=== PATIENT | female | born 2000 | race Caucasian/White ===

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

== ENCOUNTER 2021-12-15 11:41 | Observation (INO) ==
--- NOTE | 2021-12-15 12:32 | XRay Report ---
XR chest 2V PA/lateral CLINICAL HISTORY: sob, cough TECHNIQUE: 2 views of the chest were obtained. Comparison: None available at the time of this dictation. FINDINGS: No lines and tubes are seen. The cardiomediastinal silhouette is normal. The lungs are clear. No evid ence of pleural effusion or pneumothorax. IMPRESSION: No acute abnormalities and in particular no evidence of pneumonia. ACT 112: Negative or not required by law. Electronically signed by: Edgardo Peters M.D. 12/15/2021 12:30 PM
[2021-12-15 13:08] LABS: Adenovirus PCR Not Detected (NotDetected); Bordetella parapertussis PCR Not Detected (NotDetected); Bordetella pertussis PCR Not Detected (NotDetected); Chlamydia pneumoniae PCR Not Detected (NotDetected); Coronavirus 229E PCR Not Detected (NotDetected); Coronavirus CoV-2 (COVID19)PCR Not Detected (NotDetected); Coronavirus HKU1 PCR Not Detected (NotDetected); Coronavirus NL63 PCR Not Detected (NotDetected); Coronavirus OC43PCR Not Detected (NotDetected); Human Metapneumovirus PCR Not Detected (NotDetected); Influenza A PCR Not Detected (NotDetected); Influenza B PCR Not Detected (NotDetected); Mycoplasma pneumoniae PCR Not Detected (NotDetected); Parainfluenza Virus 1 PCR Not Detected (NotDetected); Parainfluenza Virus 2 PCR Not Detected (NotDetected); Parainfluenza Virus 3 PCR Not Detected (NotDetected); Parainfluenza Virus 4 PCR Not Detected (NotDetected); Respiratory Syncytial VirusPCR Not Detected (NotDetected); Rhinovirus/Enterovirus PCR Not Detected (NotDetected)
--- NOTE | 2021-12-15 14:54 | Emergency Department Note ---
Impression & Plan Myocarditis, Persistent cough for 3 weeks or longer ED Provider Note Name: MOISES SOLIMAN Age: 21 Sex: F Arrives Via: Walk-In Informant: Patient, mother ED Provider: Leonardo Bess MD Chief Complaint: Shortness of breath Impression: As per impressions above Medical Decision Making: Pleasant 21-year-old female with a history of hypothyroidism arrives for ev aluation of persistent cough, shortness of breath and chest tightness. This been ongoing for the last 4 weeks and is worse with laying flat. Exam she does have a nonproductive cough with mild dyspnea, though otherwise appears well with good vital signs. Initial labs reveal an elevated troponin. EKG is unremarkable. D-dimer is negative and this I do not feel CTA is indicated at this time. Other labs are unremarkable. COVID testing is negative multiple times over the last few days. Discussed the case with cardiology who advised trending her troponins and likely echocardiogram in the morning. Patient and mother on board with this plan. I do not feel that this is ACS and do not feel starting her on anticoagulation is indicated. Of note patient does have a history of an elevated troponin following overexertion about 6 years ago. She has not had any cardiac issues since then. I will note patient was seen during a incredibly high volume and acuity in the ER and I greatly appreciate both her and her mother understanding this. Prior Medical Record and Triage/Nursing Notes reviewed by Me Additional history obtained from chart Differentials:Reactive airway disease, pneumonia, pneumothorax, COPD, CHF, infections, cardiac ischemia, pulmonary embolism, musculoskeletal, gastrointestinal, as well as other pathologies. Vital Signs: reviewed and remarkable for mild tachy on arrival Labs:Reviewed and remarkable for elevated troponin Imaging:X ray results are stated below per my interpretation: Chest: 1 view: No infiltrate, no effusion, normal cardiac border. EKG:Per My Interpretation: Indication shob: Sinus bradycardia 54 bpm and a QTC of 411. There is no acute change from August 13, 2014. There is no ectopy nor ischemia appreciated. Consults:Dr Jose Armando BURGESS Cards - advised repeat trops, hospitalization and likely echo in am. Dr Unger of [place] hospitalist service consulted for further management Plan: Disposition:Hospitalization. Condition: Good History of Present Illness:21-year-old female arrives for evaluation of shortness of breath. Patient with 4 weeks of worsening shortness of breath and cough. Cough is hacking nonproductive. She notes is worse at night sometimes worse when she lays down. Patient states that she feels like her chest is tight when she is trying to breathe and at times has noted some wheezing. No specific fevers, nausea, vomiting, passing out or other concerning signs or symptoms. She denies any leg swelling, calf pain, abdominal pain, urinary/bowel issues, flank pain or other concerning signs or symptoms. She has been seen at urgent care several times for this and has been on steroids, azithromycin, albuterol inhaler without prolonged improvement but does feel better for a few days while taking these. She has had some cough medicines over this time with improvement as well. Denies history of DVT/PE that her uncle did have a history of blood clots in the lungs. She was on control up until about a week ago. She does note that she travels back and forth to [place] pretty regularly. ROS: See above HPI for pertinent positives & negatives. A total of 10 systems reviewed and were otherwise negative. 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 Sister has anaphylaxis to amoxicillin and thus pt has never had a penicillin before. Vitals:Blood Pressure: 110/75, Pulse 104, RR 20, T 36.5C, O2 98% on RA Physical Exam: GENERAL: Patient is tired/anxious appearing and in minimal distress. EYES: No scleral icterus, unremarkable pupils. ENT: Mucous membranes moist, no nasal congestion. NECK: No masses appreciated, nomeningismus, trachea is midline. RESPIRATORY: mild dyspnea. Clear to auscultation and equal bilaterally. No wheeze, no rhonchi. CARDIOVASCULAR: Regular rate and rhythm.No murmurs, rubs, gallops appreciated. GASTROINTESTINAL: Abdomen soft, non-tender, no peritonitis.Bowel sounds positive.No masses appreciated. BACK: No midline tenderness, no CVA tenderness EXTREMITIES: Normal motion all extremities, no cyanosis, no edema. NEUROLOGIC: Alert and oriented, no acute motor or sensory deficits, no focal weakness, cranial nerves grossly intact. SKIN: No rash, no jaundice, no diaphoresis. PSYCH: Appropriate GCS: 15 ED Course: Times/Reassessments: Patient stable throughout still has some cough but otherwise good vitals and agreeable to hospitalization. Leonardo Bess MD Past Med/Surg History Social History Smoking Status: Never smoker Second Hand Exposure: No; Do You Dip or Chew Tobacco: No; Tobacco Cessation Education Requested by Patient: No Hx Alcohol Use: No Hx Substance Use: No Preferred Language: Citizen Of [place] Breaker Operator Required: No Beliefs That Will Affect Care: None Current Living Situation: Other Current Living Situation Comment: Friends parents in [place] for school Other Information That Helps Us Care for You: No Feels Safe at Home: Yes Safety Concerns: Feels Safe At This Time Assistive Devices: None Allergies Allergies Allergy/AdvReac Type Severity Reaction Status Date / Time sulfamethoxazole Allergy Intermediate Hives Verified 12/15/21 19:43 [From Bactrim] trimethoprim [From Bactrim] Allergy Intermediate Hives Verified 12/15/21 19:43 Cephalosporins Allergy Mild Unknown Unverified 12/15/21 19:43 Penicillins Allergy Mild Unknown Unverified 12/15/21 19:43 propranolol Allergy Mild Unknown Unverified 12/15/21 19:43 ANTI THYROID MEDS Allergy Mild Unknown Uncoded 12/15/21 19:43 Home Meds Home Medications Medication Instructions Recorded Confirmed levothyroxine 125 mcg tablet See Rx Instructions .Route .COMPLEX 08/20/20 12/15/21 sertraline 100 mg tablet 100 mg PO QPM 08/20/20 12/15/21 albuterol sulfate 90 mcg/actuation 2 puff inhalation Q4 PRN Shortness 12/15/21 12/15/21 aerosol inhaler Of Breath Or Wheezing promethazine-DM 6.25 mg-15 mg/5 mL 5 ml PO QID PRN Cough 12/15/21 12/15/21 oral syrup Results & Data (ED) Vital Signs Vital Signs - 24 hr 12/15/21 11:53 12/15/21 11:53 12/15/21 18:02 Temperature 36.5 C Temperature Source Temporal Artery Scan Pulse Rate 104 H Pulse Rate from SpO2 Sensor Respiratory Rate 20 Respiratory Effort / Characteristics Non-Labored Respiratory Depth Normal Normal Blood Pressure 110/75 Blood Pressure Mean 86 Pulse Oximetry 98 100 Oxygen Delivery Method Room Air Room Air Oxygen Flow Rate 0 Sepsis Recent Fever Within 48 Hours No Sepsis New/Unexplained Change in Mental Status N/A Sepsis Action Taken by Nursing No Action Required 12/15/21 19:20 12/15/21 19:25 Temperature Temperature Source Pulse Rate 76 81 Pulse Rate from SpO2 Sensor 60 65 Respiratory Rate 17 17 Respiratory Effort / Characteristics Respiratory Depth Blood Pressure 127/70 Blood Pressure Mean 89 Pulse Oximetry 99 97 Oxygen Delivery Method Room Air Room Air Oxygen Flow Rate Sepsis Recent Fever Within 48 Hours Sepsis New/Unexplained Change in Mental Status Sepsis Action Taken by Nursing Laboratory Data Result diagrams: 12/16/21 07:20 12/16/21 07:20 Lab Results 12/15/21 12/15/21 12/15/21 Range/Units 11:59 16:34 16:34 WBC 7.39 (4.8-10.8) K/ul RBC 4.92 (3.93-5.22) M/uL Hgb 15.0 (12.0-16.0) g/dl Hct 43.8 (34.1-44.9) % MCV 89.0 (80.0-100.0) fL MCH 30.5 (25.0-34.0) pg MCHC 34.2 (32.0-36.0) g/dL RDW Std Deviation 41.7 (36.4-46.3) fL RDW Coeff of Emilia 12.8 (11.5-14.5) % Plt Count 227 (130-400) K/uL MPV 9.5 (9.4-12.3) fL Immature Gran % (Auto) 0.1 % Neut % (Auto) 55.1 % Lymph % (Auto) 22.1 % [place] % (Auto) 8.1 % Eos % (Auto) 13.8 % Baso % (Auto) 0.8 % Neut # (Auto) 4.07 (1.4-6.5) K/uL Lymph # (Auto) 1.63 (1.2-3.4) K/uL [place] # (Auto) 0.60 (0.24-0.82) K/uL Eos # (Auto) 1.02 H (0-0.50) K/uL Baso # (Auto) 0.06 (0-0.2) K/uL Immature Gran # (Auto) 0.01 (0.00-0.02) K/uL D-Dimer 380 (0-500) ug/L FEU Sodium (136-145) mmol/L Potassium (3.5-5.1) mmol/L Chloride (98-107) mmol/L Carbon Dioxide (21-32) mmol/L Anion Gap (3-11) BUN (6-23) mg/dl Creatinine (0.6-1.2) mg/dl Est Cr Clr Drug Dosing ml/min Est GFR ( Amer) ml/min Est GFR (Non-Af Amer) ml/min BUN/Creatinine Ratio (10-20) Glucose (70-99(Fasting)) mg/dl Uric Acid (2.6-7.2) mg/dl Calcium (8.5-10.1) mg/dl Magnesium (1.7-2.4) mg/dl Troponin I High Sens (0-14) pg/ml TSH (0.300-4.500) uIu/ml Free T4 (0.61-1.60) ng/dl Adenovirus (PCR) Not Detected (NotDetected) B. pertussis DNA (PCR) Not Detected (NotDetected) B.parapertussis DNA PCR Not Detected (NotDetected) Lyme Disease IgG Ab (Negative) Lyme Disease IgM Ab (Negative) C. pneumoniae DNA (PCR) Not Detected (NotDetected) Coronavirus OC43 (PCR) Not Detected (NotDetected) Coronavirus HKU1 (PCR) Not Detected (NotDetected) Coronavirus 229E (PCR) Not Detected (NotDetected) SARS-CoV-2 (PCR) Not Detected (NotDetected) Coronavirus NL63 (PCR) Not Detected (NotDetected) Monoscreen (Negative) Human Metapneumovir PCR Not Detected (NotDetected) Influenza Type A (PCR) Not Detected (NotDetected) Influenza Type B (PCR) Not Detected (NotDetected) M. pneumoniae (PCR) Not Detected (NotDetected) Parainfluenza 1 (PCR) Not Detected (NotDetected) Parainfluenza 2 (PCR) Not Detected (NotDetected) Parainfluenza 3 (PCR) Not Detected (NotDetected) Parainfluenza 4 (PCR) Not Detected (NotDetected) RSV (PCR) Not Detected (NotDetected) Entero/Rhino (PCR) Not Detected (NotDetected) 12/15/21 12/15/21 12/15/21 Range/Units 16:34 16:34 16:34 WBC (4.8-10.8) K/ul RBC (3.93-5.22) M/uL Hgb (12.0-16.0) g/dl Hct (34.1-44.9) % MCV (80.0-100.0) fL MCH (25.0-34.0) pg MCHC (32.0-36.0) g/dL RDW Std Deviation (36.4-46.3) fL RDW Coeff of Emilia (11.5-14.5) % Plt Count (130-400) K/uL MPV (9.4-12.3) fL Immature Gran % (Auto) % Neut % (Auto) % Lymph % (Auto) % [place] % (Auto) % Eos % (Auto) % Baso % (Auto) % Neut # (Auto) (1.4-6.5) K/uL Lymph # (Auto) (1.2-3.4) K/uL [place] # (Auto) (0.24-0.82) K/uL Eos # (Auto) (0-0.50) K/uL Baso # (Auto) (0-0.2) K/uL Immature Gran # (Auto) (0.00-0.02) K/uL D-Dimer (0-500) ug/L FEU Sodium 137 (136-145) mmol/L Potassium 4.0 (3.5-5.1) mmol/L Chloride 104 (98-107) mmol/L Carbon Dioxide 27 (21-32) mmol/L Anion Gap 6 (3-11) BUN 16 (6-23) mg/dl Creatinine 0.82 (0.6-1.2) mg/dl Est Cr Clr Drug Dosing 89.5 ml/min Est GFR ( Amer) 117.7 ml/min Est GFR (Non-Af Amer) 101.6 ml/min BUN/Creatinine Ratio 19.5 (10-20) Glucose 80 (70-99(Fasting)) mg/dl Uric Acid 4.9 (2.6-7.2) mg/dl Calcium 9.8 (8.5-10.1) mg/dl Magnesium 2.0 (1.7-2.4) mg/dl Troponin I High Sens 41.6 H (0-14) pg/ml TSH 0.176 L (0.300-4.500) uIu/ml Free T4 (0.61-1.60) ng/dl Adenovirus (PCR) (NotDetected) B. pertussis DNA (PCR) (NotDetected) B.parapertussis DNA PCR (NotDetected) Lyme Disease IgG Ab (Negative) Lyme Disease IgM Ab (Negative) C. pneumoniae DNA (PCR) (NotDetected) Coronavirus OC43 (PCR) (NotDetected) Coronavirus HKU1 (PCR) (NotDetected) Coronavirus 229E (PCR) (NotDetected) SARS-CoV-2 (PCR) (NotDetected) Coronavirus NL63 (PCR) (NotDetected) Monoscreen (Negative) Human Metapneumovir PCR (NotDetected) Influenza Type A (PCR) (NotDetected) Influenza Type B (PCR) (NotDetected) M. pneumoniae (PCR) (NotDetected) Parainfluenza 1 (PCR) (NotDetected) Parainfluenza 2 (PCR) (NotDetected) Parainfluenza 3 (PCR) (NotDetected) Parainfluenza 4 (PCR) (NotDetected) RSV (PCR) (NotDetected) Entero/Rhino (PCR) (NotDetected) 12/15/21 12/15/21 Range/Units 16:34 16:34 WBC (4.8-10.8) K/ul RBC (3.93-5.22) M/uL Hgb (12.0-16.0) g/dl Hct (34.1-44.9) % MCV (80.0-100.0) fL MCH (25.0-34.0) pg MCHC (32.0-36.0) g/dL RDW Std Deviation (36.4-46.3) fL RDW Coeff of Emilia (11.5-14.5) % Plt Count (130-400) K/uL MPV (9.4-12.3) fL Immature Gran % (Auto) % Neut % (Auto) % Lymph % (Auto) % [place] % (Auto) % Eos % (Auto) % Baso % (Auto) % Neut # (Auto) (1.4-6.5) K/uL Lymph # (Auto) (1.2-3.4) K/uL [place] # (Auto) (0.24-0.82) K/uL Eos # (Auto) (0-0.50) K/uL Baso # (Auto) (0-0.2) K/uL Immature Gran # (Auto) (0.00-0.02) K/uL D-Dimer (0-500) ug/L FEU Sodium (136-145) mmol/L Potassium (3.5-5.1) mmol/L Chloride (98-107) mmol/L Carbon Dioxide (21-32) mmol/L Anion Gap (3-11) BUN (6-23) mg/dl Creatinine (0.6-1.2) mg/dl Est Cr Clr Drug Dosing ml/min Est GFR ( Amer) ml/min Est GFR (Non-Af Amer) ml/min BUN/Creatinine Ratio (10-20) Glucose (70-99(Fasting)) mg/dl Uric Acid (2.6-7.2) mg/dl Calcium (8.5-10.1) mg/dl Magnesium (1.7-2.4) mg/dl Troponin I High Sens (0-14) pg/ml TSH (0.300-4.500) uIu/ml Free T4 1.15 (0.61-1.60) ng/dl Adenovirus (PCR) (NotDetected) B. pertussis DNA (PCR) (NotDetected) B.parapertussis DNA PCR (NotDetected) Lyme Disease IgG Ab Negative (Negative) Lyme Disease IgM Ab Negative (Negative) C. pneumoniae DNA (PCR) (NotDetected) Coronavirus OC43 (PCR) (NotDetected) Coronavirus HKU1 (PCR) (NotDetected) Coronavirus 229E (PCR) (NotDetected) SARS-CoV-2 (PCR) (NotDetected) Coronavirus NL63 (PCR) (NotDetected) Monoscreen Negative (Negative) Human Metapneumovir PCR (NotDetected) Influenza Type A (PCR) (NotDetected) Influenza Type B (PCR) (NotDetected) M. pneumoniae (PCR) (NotDetected) Parainfluenza 1 (PCR) (NotDetected) Parainfluenza 2 (PCR) (NotDetected) Parainfluenza 3 (PCR) (NotDetected) Parainfluenza 4 (PCR) (NotDetected) RSV (PCR) (NotDetected) Entero/Rhino (PCR) (NotDetected) Administered Medications Albuterol (Albuterol 0.083% Nebu Soln 3 Ml Vial) 2.5 mg NEB TIDR [facility]; Protocol Stop: 01/15/22 18:59 Last Admin: 12/16/21 20:27 Dose: 2.5 mg Documented By: KARLEE Fluticasone Furoate (Fluticasone Furoate 200mcg 14 Puffs/Inhaler) 1 puffs INH DAILY ANGELA Stop: 01/15/22 15:59 Last Admin: 12/16/21 15:36 Dose: 1 puffs Documented By: CAPRI Levothyroxine Sodium (Levothyroxine Sodium 125 Mcg Tablet) 125 mcg [facility] [id number] Stop: 01/15/22 06:29 Last Admin: 12/16/21 05:31 Dose: 125 mcg Documented By: ZAIDA Prednisone (Prednisone 20 Mg Tab) 40 mg PO DAILY [facility] Stop: 01/15/22 14:44 Last Admin: 12/16/21 15:36 Dose: 40 mg Documented By: CAPRI Sertraline HCl (Sertraline Hcl 100 Mg Tablet) 100 mg PO QPM ANGELA Stop: 01/14/22 22:58 Last Admin: 12/16/21 20:55 Dose: 100 mg Documented By: Admin: 12/15/21 23:46 Dose: 100 mg Documented By: ZAIDA Discontinued Medications Aspirin (Aspirin 81 Mg Ectab) 81 mg PO BID [facility] Stop: 01/14/22 22:58 Last Admin: 12/16/21 07:16 Dose: 81 mg Documented By: Admin: 12/15/21 23:46 Dose: 81 mg Documented By: ZAIDA Colchicine (Colchicine 0.6 Mg Tab) 0.6 mg PO BID ANGELA Stop: 01/14/22 22:58 Last Admin: 12/16/21 07:16 Dose: 0.6 mg Documented By: Admin: 12/15/21 23:46 Dose: 0.6 mg Documented By: ZAIDA Influenza Virus Vaccine Quadrival (Fluarix Quadrivalent 0.5 Ml Syr) 0.5 ml IM .ONCE ONE Stop: 12/16/21 00:56 Last Admin: 12/16/21 16:11 Dose: Not Given Documented By: CAPRI Imaging Data Radiologist's Impression: Chest X-Ray 12/15/21 12:01 XR chest 2V PA/lateral CLINICAL HISTORY: sob, cough TECHNIQUE: 2 views of the chest were obtained. Comparison: None available at the time of this dictation. FINDINGS: No lines and tubes are seen. The cardiomediastinal silhouette is normal. The lungs are clear. No evidence of pleural effusion or pneumothorax. IMPRESSION: No acute abnormalities and in particular no evidence of pneumonia. ACT 112: Negative or not required by law. Electronically signed by: Edgardo Peters M.D. 12/15/2021 12:30 PM Discharge Plan Visit Data Patient Disposition: Admitted As Inpatient Discharge Instructions Interventions: ED Discharge Assessment Last Done: 12/15/21 22:43 Discharge Problem: Myocarditis Qualifiers: Myocarditis type: idiopathic Chronicity: acute Qualified Code(s): I40.1 - Isolated myocarditis
[2021-12-15 16:46] LABS: Basophils # (auto) 0.06 K/uL (0-0.2); Basophils % (auto) 0.8 %; Eosinophils # (auto) 1.02 K/uL (0-0.50); Eosinophils % (auto) 13.8 %; Hematocrit (blood only) 43.8 % (34.1-44.9); Immature Granulocytes # (auto) 0.01 K/uL (0.00-0.02); Immature Granulocytes % (auto) 0.1 %; Lymphocytes # (auto) 1.63 K/uL (1.2-3.4); Lymphocytes % (auto) 22.1 %; Mean Corpuscular Hemoglobin 30.5 pg (25.0-34.0); Mean Corpuscular Hgb Conc 34.2 g/dL (32.0-36.0); Mean Platelet Volume 9.5 fL (9.4-12.3); Monocytes % (auto) 8.1 %; Neutrophils # (auto) 4.07 K/uL (1.4-6.5); Neutrophils % (auto) 55.1 %; Platelet Count 227 K/uL (130-400); RDW Coefficient of Variation 12.8 % (11.5-14.5); RDW Standard Deviation 41.7 fL (36.4-46.3); Red Blood Count 4.92 M/uL (3.93-5.22); White Blood Count 7.39 K/ul (4.8-10.8)
[2021-12-15 17:17] LABS: D Dimer 380 ug/L FEU (0-500)
[2021-12-15 17:21] LABS: Troponin I High Sensitivity 41.6 pg/ml (0-14)
[2021-12-15 17:43] LABS: BUN Creatinine Ratio 19.5 (10-20); Calcium 9.8 mg/dl (8.5-10.1); Creatinine Clr Calc Pharmacy 89.5 ml/min; Est GFR (African American) 117.7 ml/min; Est GFR (Non-African American) 101.6 ml/min
--- NOTE | 2021-12-15 19:47 | History & Physical Report ---
Date of Service December 15, 2021 Assessment & Plan (1) Shortness of breath: Plan: -Likely secondary to acute viral myocarditis, low suspicion for ACS, pneumonia, PE -CXR- no acute process, EKG on admission unremarkable, negative D-dimer -Case discussed with cardiology, deferring consult for now -Echocardiogram/TTE ordered -Supplemental O2 as needed, currently saturating well on RA -Albuterol PRN, benzonatate PRN -Trend CBC, BMP (2) Elevated troponin: Plan: -Troponin 42 on admission -Likely due to myocarditis, low suspicion for ACS at this time -Trend until peak -Ibuprofen/Tylenol PRN for chest pain (3) Graves' disease: Plan: -TSH 0.2 on admission -Continue home levothyroxine 125 mcg- 1 tablet daily M-Sat, 1.5 tablet Sun (4) Anxiety: Plan: -Continue Zoloft 100 mg daily Plan FENGI: Regular diet Code status: Full DVT ppx: Ambulation, low-risk Isolation: None Dispo: Medical/surgical with telemetry History of Present Illness Chief Complaint: Shortness of breath Primary Care Provider: Aurelio Burciaga MD 21 yo F with PMH Graves disease, myocarditis in 2013 presenting with dyspnea and chest tightness. Pt states she first began to experience dry intermittent cough 1 month prior. Cough associated with shortness of breath and wheezing. Dyspnea worse when laying flat and has subsequently affected her sleep. Notes occasional chest tightness without overt pain in relation to cough. Pt went to urgent care 2x over last month and had been prescribed inhalers, azithromycin, prednisone and cough syrup. These measures did arlene her symptoms briefly but did not achieve total resolution. States symptoms have now continued to worsen over past week and she came to ED. In ED, pt arrived hemodynamically stable. EKG unremarkable. Troponin elevated to 43. CBC, BMP, RVP, D-dimer, CXR unremarkable. Allergies Allergy/AdvReac Type Severity Reaction Status Date / Time sulfamethoxazole Allergy Intermediate Hives Verified 12/15/21 19:43 [From Bactrim] trimethoprim [From Bactrim] Allergy Intermediate Hives Verified 12/15/21 19:43 Cephalosporins Allergy Mild Unknown Unverified 12/15/21 19:43 Penicillins Allergy Mild Unknown Unverified 12/15/21 19:43 propranolol Allergy Mild Unknown Unverified 12/15/21 19:43 ANTI THYROID MEDS Allergy Mild Unknown Uncoded 12/15/21 19:43 Home Medications Medication Instructions Recorded Confirmed Type levothyroxine 125 mcg tablet See Rx Instructions .Route .COMPLEX 08/20/20 12/15/21 History sertraline 100 mg tablet 100 mg PO QPM 08/20/20 12/15/21 History albuterol sulfate 90 mcg/actuation 2 puff inhalation Q4 PRN Shortness 12/15/21 12/15/21 History aerosol inhaler Of Breath Or Wheezing promethazine-DM 6.25 mg-15 mg/5 mL 5 ml PO QID PRN Cough 12/15/21 12/15/21 History oral syrup Past Med/Surg History Social History Smoking Status: Never smoker Second Hand Exposure: No; Do You Dip or Chew Tobacco: No; Tobacco Cessation Education Requested by Patient: No Hx Alcohol Use: No Hx Substance Use: No Preferred Language: Bulgarian Cellophane Press Operator Required: No Beliefs That Will Affect Care: None Current Living Situation: Other Current Living Situation Comment: Friends parents in [place] for school Other Information That Helps Us Care for You: No Feels Safe at Home: Yes Safety Concerns: Feels Safe At This Time Assistive Devices: None Review of Systems Review of Systems: Per subjective Physical Exam Physical Exam: General: Well-appearing, no acute distress HEENT: Moist mucous membranes, no pharyngeal erythema or exudate, no lymphadenopathy, anicteric sclerae CV: RRR, normal S1 and S2, no murmurs Resp: CTAB, unlabored respirations Abd: soft, nontender, nondistended, no guarding or rebound MSK: normal bulk and tone of b/l UE and LE, no reproducible chest pain with palpation of sternum Neuro: AOx3, no focal motor or sensory deficits Skin: no rashes, warm and dry Psych: normal mood, stable affect Results & Data Results & Data ([facility]) Vital Signs (Past 12 Hours) Vital Signs Temp Pulse Resp BP Pulse Ox O2 Del Method O2 Flow Rate 12/15/21 19:25 81 17 127/70 97 Room Air 12/15/21 19:20 76 17 99 Room Air 12/15/21 18:02 100 Room Air 0 12/15/21 11:53 36.5 C 104 H 20 110/75 98 Room Air Supervising Physician Co-Signing Physician Notes Attending addendum: I have physically seen this patient, have supervised the medical residents activities, and agree with the H&P unless as otherwise noted. Assessment and Plan: Elevated troponin/shortness of breath- Troponin 41.6 upon admission The patient will be admitted to telemetry for serial cardiac enzymes, serial EKG's, cardiac rhythm monitoring and a 2-D echocardiogram with Dopplers. History of myocarditis at age 13 Clinical scenario is most suggestive of viral myocarditis empiric treatment with aspirin 81 mg p.o. twice daily and colchicine 0.6 mg p.o. twice daily Would also test for Lyme disease, sed rate, LOGAN, rheumatoid factor, Monospot and uric acid Consult cardiology, phone conversation with ED with cardiology as noted Thyroid disease- TSH 0.176 Check a free T4 and free T3 Dosing levothyroxine may need to be adjusted Anxiety- Continue current dosing of Zoloft Remaining orders and notations as noted Resident Activity Tracking Resident Involvement: Resident Care Provided Care Provided: Adult Hospital Medicine
[2021-12-15 21:44] LABS: Monotest Negative (Negative)
[2021-12-15 22:06] LABS: Uric Acid 4.9 mg/dl (2.6-7.2)
[2021-12-15 22:08] LABS: Lyme Ab IgG w/WB Rflx Negative (Negative); Lyme Ab IgM w/WB Rflx Negative (Negative)
[2021-12-15] MEDS ORDERED: IBUPROFEN 600 MG TAB PO PRN (22:59)
[2021-12-15] MEDS ORDERED: ALBUTEROL HFA 8 GM INHALER INH PRN (22:59)
[2021-12-15] MEDS ORDERED: ACETAMINOPHEN 325 MG TAB PO PRN (22:59)
[2021-12-15] MEDS ORDERED: ONDANSETRON INJ 2 MG/ML 2 ML VIAL IV PRN (22:59)
[2021-12-15] MEDS ORDERED: BENZONATATE 100 MG CAPSULE PO PRN (22:59)
[2021-12-15] MEDS: ASPIRIN 81 MG ECTAB PO SCH (23:46)
[2021-12-15] MEDS: SERTRALINE HCL 100 MG TABLET PO SCH (23:46)
[2021-12-15] MEDS: COLCHICINE 0.6 MG TAB PO SCH (23:46)
[2021-12-16] MEDS ORDERED: FLUARIX QUADRIVALENT 0.5 ML SYR IM ONE (00:55)
[2021-12-16] MEDS: LEVOTHYROXINE SODIUM 125 MCG TABLET PO SCH (05:31)
[2021-12-16] MEDS: ASPIRIN 81 MG ECTAB PO SCH (07:16)
[2021-12-16] MEDS: COLCHICINE 0.6 MG TAB PO SCH (07:16)
[2021-12-16 07:53] LABS: Hematocrit (blood only) 43.3 % (34.1-44.9); Hemoglobin 14.8 g/dl (12.0-16.0); Mean Corpuscular Hemoglobin 30.5 pg (25.0-34.0); Mean Corpuscular Hgb Conc 34.2 g/dL (32.0-36.0); Mean Corpuscular Volume 89.1 fL (80.0-100.0); Mean Platelet Volume 9.4 fL (9.4-12.3); Platelet Count 207 K/uL (130-400); RDW Coefficient of Variation 12.7 % (11.5-14.5); RDW Standard Deviation 41.9 fL (36.4-46.3); Red Blood Count 4.86 M/uL (3.93-5.22); White Blood Count 6.93 K/ul (4.8-10.8)
[2021-12-16 08:22] LABS: BUN Creatinine Ratio 15.7 (10-20); Calcium 9.7 mg/dl (8.5-10.1); Creatinine Clr Calc Pharmacy 88.4 ml/min; Est GFR (Non-African American) 100.1 ml/min; Potassium 4.2 mmol/L (3.5-5.1)
--- NOTE | 2021-12-16 12:21 | XCELERA ---
[id number]
--- NOTE | 2021-12-16 14:31 | Hospitalist Progress Note ---
Date of Service December 16, 2021 Assessment & Plan (1) Shortness of breath: Plan: Feel more likely to asthma compared to myocarditis. Ongoing cough and shortness of breath for weeks with transient improvement with steroids. No real chest pain to speak of. - Echo on 12/16 with trace pericardial effusion, but otherwise normal. - CXR- no acute process, EKG on admission unremarkable, negative D-dimer - Case discussed with cardiology on admission, deferring consult for now - Will start steroid and inhaler. Trial albuterol nebulizer for improvement. (2) Elevated troponin: Plan: Troponin 42 on admission, then stable afterward. Possibly due to myocarditis, low suspicion for ACS. - Ibuprofen/Tylenol PRN for chest pain (3) Graves' disease: Plan: TSH 0.2 on admission. Normal FT4. This is normal for a [address] Valencia, so next check would be in 3 months. - Continue home levothyroxine 125 mcg- 1 tablet daily M-Sat, 1.5 tablet Sun (4) Anxiety: Plan: - Continue Zoloft 100 mg daily Admission and Anticipated Discharge Date Admission Date: December 15, 2021 Subjective Doing well today. Still with shortness of breath, but improved compared to admission. Still with some cough. Less chest tightness. Physical Exam Constitutional: WD/WN, vitals as above Eyes: EOM intact bilaterally; no conjunctival abnormality ENMT: external ear and nose normal, oropharynx normal Neck: trachea midline, no thyromegaly normal visual inspection Respiratory: normal respiratory effort, lungs clear to auscultation no respiratory distress Cardiovascular: RRR, no murmur, no edema Gastrointestinal (Abdomen): Inspection/Auscultation: abdomen normal to inspection; abdomen not distended Musculoskeletal: no cyanosis or clubbing, extremities motor strength 5/5 Skin: no rashes, warm and dry Neurologic: moves all extremities and awake Psychiatric: Orientation: alert, oriented to person and cooperative Results & Data Results & Data ([facility]) Vital Signs (Past 12 Hours) Vital Signs Temp Pulse Pulse Resp BP Pulse Ox O2 Del Method 12/16/21 11:32 37.3 C 61 18 104/67 93 Room Air 12/16/21 07:41 37.0 C 56 L 18 101/65 90 Room Air 12/16/21 07:05 52 L 12/16/21 04:27 36.9 C 46 L 18 117/76 95 Room Air PG Care Time/CCT Total # of Minutes Spent Total Time Spent with Patient: Total time spent is greater than 50% in coordination of care (as documented) at patient's floor/unit and/or counseling patient: Coding Level of Care Code 05929 Subseq Hosp Care Lvl 2 Diagnoses Shortness of breath R06.02 Elevated troponin R74.8 Graves' disease E05.00 Anxiety F41.9
[2021-12-16] MEDS: predniSONE 20 MG TAB PO SCH (15:36)
[2021-12-16] MEDS: FLUTICASONE FUROATE 200MCG 14 PUFFS/INHALER INH SCH (15:36)
[2021-12-16] MEDS ORDERED: ALBUTEROL 0.083% NEBU SOLN 3 ML VIAL NEB SCH (19:00)
--- NOTE | 2021-12-16 20:39 | Billing Data ---
Date of Service December 16, 2021 Coding Level of Care Code INT OBSERVATION CARE 70M LVL 3
[2021-12-16] MEDS: SERTRALINE HCL 100 MG TABLET PO SCH (20:55)
--- NOTE | 2021-12-17 05:51 | Electrocardiogram Report ---
Test Reason : Blood Pressure : / mmHG Vent. Rate : 054 BPM Atrial Rate : 054 BPM P-R Int : 166 ms QRS Dur : 072 ms QT Int : 434 ms P-R-T Axes : 046 071 050 degrees QTc Int : 411 ms Sinus bradycardia with sinus arrhythmia Otherwise normal ECG When compared with ECG of 13-AUG-2014 23:11, Confirmed by Forrest Gonzalez ([id number]) on 12/17/2021 5:50:56 AM Referred By: REFERRED SELF Confirmed By:Forrest Gonzalez
[2021-12-17] MEDS: LEVOTHYROXINE SODIUM 125 MCG TABLET PO SCH (05:55)
[2021-12-17] MEDS ORDERED: ALBUT/IPRATROP 3MG/0.5MG NEB 3 ML VIAL NEB SCH (07:00)
[2021-12-17] MEDS: FLUTICASONE FUROATE 200MCG 14 PUFFS/INHALER INH SCH (07:20)
[2021-12-17] MEDS: predniSONE 20 MG TAB PO SCH (07:21)
[2021-12-17 08:56] LABS: Hematocrit (blood only) 38.8 % (34.1-44.9); Hemoglobin 13.5 g/dl (12.0-16.0); Mean Corpuscular Hemoglobin 30.8 pg (25.0-34.0); Mean Corpuscular Hgb Conc 34.8 g/dL (32.0-36.0); Mean Corpuscular Volume 88.4 fL (80.0-100.0); Mean Platelet Volume 9.7 fL (9.4-12.3); Platelet Count 191 K/uL (130-400); RDW Coefficient of Variation 12.4 % (11.5-14.5); RDW Standard Deviation 40.1 fL (36.4-46.3); Red Blood Count 4.39 M/uL (3.93-5.22); White Blood Count 8.17 K/ul (4.8-10.8)
[2021-12-17 10:00] LABS: BUN Creatinine Ratio 22.5 (10-20); Calcium 9.4 mg/dl (8.5-10.1); Creatinine Clr Calc Pharmacy 102.7 ml/min; Est GFR (African American) 140.1 ml/min; Est GFR (Non-African American) 120.9 ml/min; Magnesium 1.6 mg/dl (1.7-2.4); Potassium 3.3 mmol/L (3.5-5.1)
[2021-12-17 15:06] LABS: EBV Nuclear Ag Antibody <18.00 U/mL; EBV Virus Capsid Ag IgG Ab <18.00 U/mL; Epstein Barr Virus Early Ag Ab <9.00 U/mL
--- NOTE | 2021-12-17 17:05 | Discharge Summary ---
Date of Service December 17, 2021 Admission HPI Per Admitting Provider 21 yo F with PMH Graves disease, myocarditis in 2014 presenting with dyspnea and chest tightness. Pt states she first began to experience dry intermittent cough 1 month prior. Cough associated with shortness of breath and wheezing. Dyspnea worse when laying flat and has subsequently affected her sleep. Notes occasional chest tightness without overt pain in relation to cough. Pt went to urgent care 2x over last month and had been prescribed inhalers, azithromycin, prednisone and cough syrup. These measures did arlene her symptoms briefly but did not achieve total resolution. States symptoms have now continued to worsen over past week and she came to ED. In ED, pt arrived hemodynamically stable. EKG unremarkable. Troponin elevated to 43. CBC, BMP, RVP, D-dimer, CXR unremarkable. Principal Diagnosis Cough-variant asthma Discharge Exam Constitutional WD/WN, vitals as above Eyes EOM intact bilaterally; no conjunctival abnormality ENMT external ear and nose normal, oropharynx normal Neck trachea midline, no thyromegaly normal visual inspection Respiratory normal respiratory effort, lungs clear to auscultation + cough; no respiratory distress Auscultation: no wheezes Cardiovascular RRR, no murmur, no edema Gastrointestinal (Abdomen) Inspection/Auscultation: abdomen normal to inspection; abdomen not distended Musculoskeletal no cyanosis or clubbing, extremities motor strength 5/5 Skin no rashes, warm and dry Neurologic moves all extremities and awake Psychiatric Orientation: alert, oriented to person and cooperative Discharge Data Allergies Allergy/AdvReac Type Severity Reaction Status Date / Time sulfamethoxazole Allergy Intermediate Hives Verified 12/15/21 19:43 [From Bactrim] trimethoprim [From Bactrim] Allergy Intermediate Hives Verified 12/15/21 19:43 Cephalosporins Allergy Mild Unknown Unverified 12/15/21 19:43 Penicillins Allergy Mild Unknown Unverified 12/15/21 19:43 propranolol Allergy Mild Unknown Unverified 12/15/21 19:43 ANTI THYROID MEDS Allergy Mild Unknown Uncoded 12/15/21 19:43 Consultations 12/15/21 19:25 ED Decision to Admit Stat Hospital Course (1) Shortness of breath: Feel more likely to cough-variant asthma compared to myocarditis. Ongoing cough and shortness of breath for weeks with transient improvement with steroids. No real chest pain to speak of. - Echo on 12/16 with trace pericardial effusion, but otherwise normal. - CXR- no acute process, EKG on admission unremarkable, negative D-dimer - Case discussed with cardiology on admission, deferring consult for now - Started prednisone and standing albuterol nebulizers which helped substantially. Discharged home on Flovent, prednisone, and prescribed inhaler spacer in case she had been not getting albuterol inhaler medication inhaled effectively. => Will follow up with PCP for PFTs once this has calmed down. If any further concerns, can refer to pulmonology. (2) Elevated troponin: Troponin 42 on admission, then stable afterward. Low concern for myocarditis. - Ibuprofen/Tylenol PRN for chest pain (3) Graves' disease: TSH 0.2 on admission. Normal FT4. This is normal for a [address] Valencia, so next check would be in 3 months. - Continue home levothyroxine 125 mcg- 1 tablet daily M-Sat, 1.5 tablet Sun (4) Anxiety: - Continue Zoloft 100 mg daily Total Time Total Time Spent Total Time Spent (In Minutes): 25 Discharge Plan Discharge Items Patient Disposition: Home - Self-Care Reason For Visit: DYSPNEA, CHEST PAIN Discharge Diagnosis: Cough-variant asthma Activity: Resume your previous activity Non-emergency contact: Primary Care Provider Call non-emergency contact if: your symptoms worsen Follow-up/Referrals: Aurelio Burciaga MD [Primary Care Provider] - 12/24/21 1:00 pm Diet: Regular Addtl Attending Provider Instructions: Ms. Martinez, You were admitted with cough, shortness of breath, and some concern for inflammation of the heart. Luckily, we do not think there is any cardiac damage going on. Your heart enzymes (troponins) have all been stable. Your ultrasound of your heart (echocardiogram) looks great. You are not having chest pain or any symptoms that would alarm us for heart damage. Your main concern has been this cough and shortness of breath that have been worse overnight and during exercise. It got better with steroids, but then came back. I do think you have cough-variant asthma, and I have started treatment for it which seems to be improving your cough and shortness of breath. I would like to discharge you on 4 more days of steroids, a maintenance inhaler, and with close follow up with your PCP. If your cough and breathing continue to improve, you can see Dr. Burciaga in the office and arrange for official breathing testing that would help us confirm this. If your breathing and cough get worse, you can discuss with Dr. Burciaga the benefit of seeing a insole department worker to help get to the bottom of things. Some other things like heartburn and post-nasal drip seem a bit less likely, though you do have some allergies, and this may be playing a role. You can try [id number] Flonase or any other nasal steroid for this. As we discussed, feel free to see the quality tech for allergy testing. This might help you identify triggers for your cough that you could avoid or help reduce symptoms. Pending Studies at Discharge: No Stand-Alone Forms: My [facility] [employer], Work/School Release, Smoking Cessation Medications and DC Order Prescriptions: New prednisone 20 mg Tablet 40 mg PO DAILY Qty: 8 0RF Rx Instructions: Next dose tomorrow (12/18). Arnuity Ellipta 200 mcg/actuation Blister With Device 1 inh inhalation DAILY Qty: 30 0RF Rx Instructions: Take every day, then rinse out your mouth. (DME) Spacer for Inhaler Misc See Rx Instructions .Route Qty: 1 0RF Rx Instructions: As directed Continued sertraline 100 mg Tablet 100 mg PO QPM levothyroxine 125 mcg tablet See Rx Instructions .ROUTE .COMPLEX Rx Instructions: take 1 tablet daily 6 days a week and take 1 & 1/2 tablet daily on sundays take daily 1 hour before food or medications promethazine-DM 6.25-15 mg/5 mL syrup 5 ml PO QID PRN (Reason: Cough) albuterol sulfate 90 mcg/actuation HFA aerosol inhaler 2 puff INHALATION Q4 PRN (Reason: Shortness Of Breath Or Wheezing) Discharge Orders: Discharge Order (Routine); Ordered 12/17/21 Ordered By: Arturo Oconnell Admission Data Admit Date/Time: 12/15/21 20:02 Attending Provider: Arturo Oconnell Admit Provider: Gayatri Sterling Primary Care Provider: Aurelio Burciaga Other Providers: Jermain Unger Other Interventions: Discharge Summary Assessment (RN) Last Done: 12/17/21 12:31 Coding Level of Care Code 87215 OBS Care - Discharge Diagnoses Shortness of breath R06.02 Elevated troponin R74.8 Graves' disease E05.00 Anxiety F41.9
[2021-12-21] MEDS ORDERED: LEVOTHYROXINE SODIUM 125 MCG TABLET PO SCH (06:30)
== END 2021-12-17 13:03 | disposition home or self-care (01) ==
LOC: ED 11:41 → 2W 11:41 → SUATTDRO 20:02 → 2W 22:43